=== PATIENT | female | born 1965 | race Caucasian/White ===

== ENCOUNTER 2018-12-13 16:24 | Emergency (ER) | payer MEDICAID ==
[~2018-12-13] VITALS: Ht 144.8 cm; Wt 68.0 kg
[2018-12-13 16:36] VITALS: BP_SYST 162
[2018-12-13 17:40] VITALS: BP_SYST 162
== END 2018-12-13 17:40 | disposition home or self-care (01) ==
LOC: SED 16:24
DX: N39.0 Urinary tract infection, site not specified (principal); I10 Essential (primary) hypertension; Z88.1 Allergy status to other antibiotic agents
CPT/HCPCS: 81002; 99283

== ENCOUNTER 2019-02-12 19:34 | Emergency (ER) | payer MEDICAID ==
[~2019-02-12] VITALS: Ht 142.2 cm; Wt 65.8 kg
--- NOTE | 2019-02-12 19:43 | NUR ---
Patient to ER bed 6 to gown for evaluation. Side rails up. Report given to Shun NEVILLE.
[2019-02-12 20:02] VITALS: BP_SYST 154
--- NOTE | 2019-02-12 20:10 | NUR ---
ER at bedside examining patient.
[2019-02-12] MEDS ORDERED: NACL 0.9% 1,000 ML IV ONE (20:15)
[2019-02-12] MEDS ORDERED: KETOROLAC TROMETHAMINE 30 MG VIAL IM ONE (20:30)
[2019-02-12] MEDS ORDERED: PHENAZOPYRIDINE HCL 100 MG TABLET PO ONE (20:30)
[2019-02-12] MEDS ORDERED: CEPHALEXIN 500 MG CAPSULE PO ONE (20:30)
[2019-02-12] MEDS ORDERED: KETOROLAC TROMETHAMINE 60 MG/2 ML VIAL IM ONE (20:45)
--- NOTE | 2019-02-12 20:52 | NUR ---
Pt c/o burning upon urination along chills nausea. Pt is also c/o spasms in right side of neck, she is being followed up by her PMD for neck pain starting from May 08, 2018 due to a fall from 3rd level bunk bed.
--- NOTE | 2019-02-12 20:54 | NUR ---
Neck pain 8/10. No c/o numbness or tingling bilateral upper extremities.
[2019-02-12] MEDS ORDERED: CEPHALEXIN 500 MG CAPSULE ONE (20:57)
[2019-02-12 21:38] VITALS: BP_SYST 149
--- NOTE | 2019-02-12 21:38 | NUR ---
Patient given written and verbal discharge instructions and verbalizes understanding. ER MD discussed with patient the results and treatment provided. Patient in stable condition. ID arm band removed. Rx of Pyridium 200mg P.O., Naprosyn 500mg P.O., Keflex 500mg P.O. given. Patient educated on pain management and to follow up with PMD. Pain Scale 3/10. Opportunity for questions provided and answered. Medication side effect fact sheet provided.
== END 2019-02-12 21:38 | disposition home or self-care (01) ==
LOC: SED 19:34
DX: N39.0 Urinary tract infection, site not specified (principal); I10 Essential (primary) hypertension; F41.9 Anxiety disorder, unspecified; Z88.1 Allergy status to other antibiotic agents
CPT/HCPCS: 96372; 99283; J1885

== ENCOUNTER 2019-06-01 23:20 | Emergency (ER) | payer MEDICAID ==
[~2019-06-01] VITALS: Ht 139.7 cm; Wt 61.2 kg
[2019-06-01 23:25] VITALS: BP_SYST 146
[2019-06-02 03:31] LABS: BILIRUBIN,URINE 1+ (NEGATIVE); BLOOD, URINE 1+ (NEGATIVE); CLARITY/URINE CLEAR (CLEAR); COLOR,URINE YELLOW (YELLOW); GLUCOSE,URINE NEGATIVE (NEGATIVE); KETONES,URINE NEGATIVE (NEGATIVE); LEUKOCYTE ESTERASE ,URINE TRACE (NEGATIVE); NITRITE, URINE NEGATIVE (NEGATIVE); PROTEIN URINE TRACE (NEGATIVE)
[2019-06-02 03:43] LABS: BACTERIA,URINE MODERATE /HPF (None Seen)
[2019-06-02] MEDS ORDERED: CEPHALEXIN 500 MG CAPSULE PO ONE (03:45)
[2019-06-02] MEDS ORDERED: PHENAZOPYRIDINE HCL 100 MG TABLET PO ONE (03:45)
[2019-06-02 04:40] VITALS: BP_SYST 126
== END 2019-06-02 04:40 | disposition home or self-care (01) ==
LOC: SED 23:20
DX: N39.0 Urinary tract infection, site not specified (principal); R11.0 Nausea; I10 Essential (primary) hypertension; F41.9 Anxiety disorder, unspecified; Z88.1 Allergy status to other antibiotic agents
CPT/HCPCS: 81000-TC; 87086; 87186-TC; 99283

== ENCOUNTER 2019-11-10 22:41 | Emergency (ER) | payer MEDICAID ==
[~2019-11-10] VITALS: Ht 162.6 cm; Wt 63.5 kg
[2019-11-10 22:45] VITALS: BP_SYST 156
== END 2019-11-10 23:30 | disposition left against medical advice (07) ==
LOC: SED 22:41
DX: M79.605 Pain in left leg (principal); Z53.21 Procedure and treatment not carried out due to patient leaving prior to being seen by health care provider

== ENCOUNTER 2019-11-14 16:02 | Emergency (ER) | payer MEDICAID ==
[~2019-11-14] VITALS: Ht 154.9 cm; Wt 63.5 kg
[2019-11-14 16:10] VITALS: BP_SYST 161
[2019-11-14 16:29] VITALS: BP_SYST 138
== END 2019-11-14 16:28 | disposition home or self-care (01) ==
LOC: SED 16:02
DX: M79.2 Neuralgia and neuritis, unspecified (principal); F41.9 Anxiety disorder, unspecified; I10 Essential (primary) hypertension; F17.200 Nicotine dependence, unspecified, uncomplicated; Z88.1 Allergy status to other antibiotic agents
CPT/HCPCS: 99283

== ENCOUNTER 2019-11-24 16:13 | Emergency (ER) | payer MEDICAID ==
[~2019-11-24] VITALS: Ht 144.8 cm; Wt 68.0 kg
--- NOTE | 2019-11-24 16:45 | NUR ---
PATIENT TO ER #5
[2019-11-24 16:48] VITALS: BP_SYST 123
--- NOTE | 2019-11-24 17:00 | NUR ---
ER at bedside examining patient.
--- NOTE | 2019-11-24 17:01 | NUR ---
PATIENT BROUGHT IN COMPLAINING OF CONSTANT LEFT LOWER EXTREMITY PAIN WORSENING THE LAST 2 WEEKS. DENIES ANY TRAUMA. PATIENT HAS HISTORY OF HYPERTENSION. PAIN 4/10. NO OTHER COMPLAINTS/INJURIES PER PATIENT OR NOTED. WILL CONTINUE TO MONITOR.
[2019-11-24 17:20] VITALS: BP_SYST 123
--- NOTE | 2019-11-24 17:20 | NUR ---
Patient given written and verbal discharge instructions and verbalizes understanding. ER MD discussed with patient the results and treatment provided. Patient in stable condition. ID arm band removed. Rx of GABAPENTIN, NAPROSYN, AND FLEXERIL given. Patient educated on pain management and to follow up with PMD. Pain Scale 0/10 Opportunity for questions provided and answered. Medication side effect fact sheet provided.
== END 2019-11-24 17:20 | disposition home or self-care (01) ==
LOC: SED 16:13
DX: M54.32 Sciatica, left side (principal); M54.5 Low back pain; I10 Essential (primary) hypertension; F41.9 Anxiety disorder, unspecified; F17.210 Nicotine dependence, cigarettes, uncomplicated; Z88.1 Allergy status to other antibiotic agents
CPT/HCPCS: 99283; J7030

== ENCOUNTER 2019-12-13 09:37 | Emergency (ER) | payer MEDICAID ==
[~2019-12-13] VITALS: Ht 152.4 cm; Wt 70.3 kg
[2019-12-13 09:50] VITALS: BP_SYST 131
--- NOTE | 2019-12-13 10:03 | NUR ---
Patient to ER bed H1 to gown for evaluation. Side rails up. Report given to Effie NEVILLE
--- NOTE | 2019-12-13 10:05 | NUR ---
Pt came to ER with request for medication refill. Reports SOB and needing her inhaler refilled. No other complaints at this time. V/S stable, pt currently afebrile. No distress noted, resting in bed. Will continue to monitor.
--- NOTE | 2019-12-13 10:58 | NUR ---
X-ray done at bedside as ordered by Dr. Valerio. Patient tolerated the procedure well.
[2019-12-13] MEDS ORDERED: PREDNISONE 20 MG TABLET PO ONE (11:00)
--- NOTE | 2019-12-13 11:00 | NUR ---
network technician at bedside collecting blood specimen as ordered by Dr. Valerio. Patient tolerated the procedure well.
--- NOTE | 2019-12-13 11:15 | NUR ---
EKG performed at bedside, given to MD for interpretation
--- NOTE | 2019-12-13 11:20 | NUR ---
Prednisone administered as ordered
[2019-12-13 11:28] LABS: BASOPHILS # (AUTO) 0.1 K/uL (0.0-0.2); BASOPHILS % (AUTO) 0.9 % (0.0-2.0); EOSINOPHILS # (AUTO) 0.8 K/uL (0.0-0.4); EOSINOPHILS % (AUTO) 9.9 % (0.0-4.0); HEMATOCRIT 46.2 % (36-48); LYMPHOCYTES # (AUTO) 1.9 K/uL (1.0-5.5); LYMPHOCYTES % (AUTO) 23.6 % (20.5-51.5); MEAN CORPUSCULAR HEMOGLOBIN 32 pg (27-31); MEAN CORPUSCULAR HGB CONC 35 % (32-36); MEAN CORPUSCULAR VOLUME 92 fL (79.0-98.0); MONOCYTES # (AUTO) 0.5 K/uL (0.0-1.0); MONOCYTES % (AUTO) 6.2 % (1.7-9.3); NEUTROPHILS # (AUTO) 4.8 K/uL (1.8-7.7); NEUTROPHILS % (AUTO) 59.4 % (40.0-70.0); PLATELET COUNT (AUTO) 258 K/uL (130-430); RED BLOOD CELL COUNT(AUTO) 5.04 MIL/uL (4.2-6.2); RED CELL DISTRIBUTION WIDTH 13.1 % (9.0-15.0); WHITE BLOOD COUNT (AUTO) 8.2 K/uL (4.8-10.8)
[2019-12-13 11:35] LABS: ANION GAP 4 (5-15); CALCIUM 9.1 mg/dL (8.4-11.0); CHLORIDE 101 mmol/L (98-107); CREATININE 0.83 mg/dL (0.55-1.30); GLUCOSE 93 mg/dL (70-99); POTASSIUM 3.8 mmol/L (3.5-5.1); SODIUM SERUM 139 mmol/L (136-145); UREA NITROGEN, BLOOD 16 mg/dL (8-21)
[2019-12-13 11:36] LABS: GFR AFRICAN AMERICAN 91 mL/min (>90)
[2019-12-13 11:41] LABS: TOTAL BILIRUBIN 0.6 mg/dL (0.0-1.0)
[2019-12-13 11:42] LABS: ALANINE AMINOTRANSFERASE 32 U/L (12-78); ASPARTATE AMINOTRANSFERASE 23 U/L (10-37)
[2019-12-13 11:51] LABS: C-REACTIVE PROTEIN QUANT < 0.2 mg/dL (0-0.5)
[2019-12-13 13:34] VITALS: BP_SYST 130
--- NOTE | 2019-12-13 13:35 | NUR ---
Patient given written and verbal discharge instructions and verbalizes understanding. ER MD discussed with patient the results and treatment provided. Patient in stable condition. ID arm band removed. Rx of Xopnex and Gabapentin given. Patient educated on pain management and to follow up with PMD. Pain Scale 0. Opportunity for questions provided and answered. Medication side effect fact sheet provided.
== END 2019-12-13 13:34 | disposition home or self-care (01) ==
LOC: SED 09:37
DX: R06.02 Shortness of breath (principal); I10 Essential (primary) hypertension; F41.9 Anxiety disorder, unspecified; F15.10 Other stimulant abuse, uncomplicated; F17.210 Nicotine dependence, cigarettes, uncomplicated; Z88.1 Allergy status to other antibiotic agents
CPT/HCPCS: 36415; 71045; 80053; 82728; 83880; 84484; 85025; 85379; 86140; 93005; 99285; J7512